=== PATIENT | male | born 2005 | race Caucasian/White ===

== ENCOUNTER 2025-09-16 18:14 | Outpatient (REF) | payer OTHER, SELFPAY ==
--- NOTE | ~2025-09-16 | MR_ITS ---
EXAMINATION: MR KNEE WITHOUT CONTRAST, RIGHT CLINICAL INFORMATION: Pain medial joint line COMPARISON: None available. TECHNIQUE: MRI of the knee without contrast was performed using routine sequences on a high-field scanner. FINDINGS: MENISCI: Medial Meniscus: Intact Lateral Meniscus: Vertical longitudinally propagating signal in the anterior horn extending to the superior surface, suspicious for a tear. LIGAMENTS: Cruciate: Intact Collateral: Intact EXTENSOR MECHANISM: Quadriceps tendon is intact. Mild proximal patellar tendinosis, with deep surface fraying. There is edema in the Hoffa's fat pad. There is a fluid in the anterior subcutaneous tissues including overlying the patella and the patellar tendon, measuring approximately 7 x 7.3 x 0.8 cm. (Craniocaudal, transverse, AP). Differential consideration include bursitis, inflammatory/infectious process in the appropriate clinical circumstance. There is prominent edema in the anterior subcutaneous tissues. ARTICULAR CARTILAGE/BONE: Patellofemoral Compartment: No significant chondral loss Medial Compartment: No significant chondral loss Lateral Compartment: No significant chondral loss No fracture. JOINT FLUID AND BURSAE: Small effusion. Trace Burleson's cyst. MR/MR knee RT wo con IMPRESSION: * Findings in the anterior horn lateral meniscus, suspicious for a tear. * Mild proximal patellar tendinosis, with deep surface fraying. Edema in the Hoffa's fat pad. * Fluid in the anterior subcutaneous tissues overlying the patella and the patellar tendon measuring 7 x 7.3 x 0.8 cm. Differential consideration include bursitis, inflammatory/infectious process. There is prominent anterior subcutaneous edema present. * Small effusion. Electronically signed by: Micheal Ramirez MD 09/17/2025 08:29 AM [facility]
--- OUTSIDE RECORDS SUMMARY | 2025-09-17 05:10 | XMS_ITS | Clinical Summary ---
Author Organization [facility] Address [address] [phone] Phone Care Team Providers Care Desk Interviewer Name Role Phone Pcp, Unknown Primary Care Provider Unavailabl e Allergies Active Allergy Reactions Criticality Noted Date Comments Penicillins 02/27/2018 Medications albuterol 90 mcg/actuation inhaler INHALE 2 PUFFS BY MOUTH EVERY 4 TO 6 HOURS NEEDED FOR SHORTNESS OF BREATH Active Active Problems No known active problems Social History Tobacco Use Types Packs/Day Years Used Date Smoking Tobacco: Never Smokeless Tobacco: Never Tobacco Cessation:Counseling Given: Not Answered Alcohol Use Standard Drinks/Week Comments Yes 0 (1 standard drink = 0.6 oz pur e alcohol) Education Answer Date Recorded Are you interested in more education? Not on heavenly e 02/24/2023 Are you concerned about learning? Not on file 02/24/2023 No 02/24/2023 No 02/24/2023 Digital Access Answer Date Recorded No 03/27/2023 No 03/27/2023 Reliable internet access at home? Not on file 03/27/2023 Device with a working camera? Not on file Sex and Gender Information Value Date Recorded Sex Assigned at Not on file Legal Sex Male 12:13 PM EDT Gender Identity Not on file Sexual Orientation Not on file Last Filed Vital Signs Vital Sign Reading Time Taken Comments Blood Pressure 130/80 01/26/2023 1:13 PM EDT Pulse 87 01/26/2023 1:13 PM EDT Temperature 37 C (98.6 F) 01/26/2023 1:13 PM EDT Respiratory Rate 16 01/26/2023 1:13 PM EDT Oxygen Saturation 98% 01/26/2023 1:13 PM EDT Inhaled Oxygen Concentration - - Weight 95.3 kg (210 lb) 01/26/2023 1:13 PM EDT Height 182.9 cm (6') 01/26/2023 1:13 PM EDT Body Mass Index 28.48 01/26/2023 1:13 PM EDT Plan of Treatment Health Maintenance Due Date Last Done Comments Adult Td,Tdap Booster 2003 DEPRESSION SCREENING 2015 SMOKING Hx and SMOKELESS TOB ACCO SCREENING 2016 HPV VACCINES (1 - Male 3-dos e series) 2018 MENINGOCOCCAL VACCINES (B) ( 1 of 2 - Standard) 2019 HEPATITIS C SCREENING 2021 HIV ONE-TIME SCREENING (18-6 5 YEARS) 2021 INFLUENZA VACCINE (#1) 2025 COVID-19 VACCINE (1 - 2024-2 6 season) 2025 HEPATITIS A VACCINES Aged Out No long er eligible based on patient's age to complete this topic HIB VACCINES Aged Out No longer eligi ble based on patient's age to complete this topic IPV VACCINES Aged Out No longer eligi ble based on patient's age to complete this topic MENINGOCOCCAL VACCINES (ACWY) Aged Out No longer eligible based on patient's age to complete this topic PNEUMOCOCCAL VACCINES (0-49 years) Aged Out No longer eligible based on patient's age to complete this topic Medical Devices Not on file Insurance CIGNA PPO CIGNA PPO CIGNA PPO CIGNA PPO CIGNA PPO CIGBAL[place]INA PPO Care Teams Desk Interviewer Relationship Specialty Start Date End Date Pcp, Unknown PCP - General 01/26/23 Additional Source Comments The information contained in this document represents components of the legal health record. It is not the complete legal health record.[facility]
== END 2025-09-16 18:15 | disposition home or self-care (01) ==
LOC: HO.MRI 18:14
PROVIDERS: Visit Provider Student in an Organized Health Care Education/Training Program
DX: M25.561 Pain in right knee (principal)
CPT/HCPCS: 73721

== ENCOUNTER → 2025-09-16 18:23 | Outpatient (BNV) | payer OTHER, SELFPAY | PROVIDERS: Visit Provider Radiology Diagnostic Ultrasound | DX: M76.51 Patellar tendinitis, right knee (principal); R60.0 Localized edema; M25.461 Effusion, right knee | CPT/HCPCS: 73721 ==